=== PATIENT | male | born 1960 | race Caucasian/White ===

== ENCOUNTER 2017-01-19 07:48 | Day surgery (SDC) | payer MEDICAID ==
[~2017-01-19 07:48] MED LIST: BUPIVACAINE 0.5% 30 ML SDV ONE; ceFAZolin 2 GM/DEXTROSE 100 ML IV ONE
[2017-01-19] MEDS ORDERED: LR 1,000 ML IV ONE (08:30)
[2017-01-19] MEDS ORDERED: CEFAZOLIN 2 GM/DEXTROSE/100 ML BAG IV ONE (08:30)
[2017-01-19] MEDS ORDERED: MIDAZOLAM 2 MG/2 ML VIAL ONE (09:06)
[2017-01-19] MEDS ORDERED: ALBUTEROL 3 ML DEYVIAL ONE (09:13)
[2017-01-19] MEDS ORDERED: fentaNYL 100 MCG/2 ML INJ ONE ×2 (09:30→11:47)
[2017-01-19] MEDS ORDERED: PROPOFOL 200 MG/20 ML VIAL ONE (09:30)
[2017-01-19] MEDS ORDERED: DEXAMETHASONE 4 MG/ML VIAL ONE (09:42)
[2017-01-19] MEDS ORDERED: ONDANSETRON 4 MG/2 ML VIAL ONE (09:42)
[2017-01-19] MEDS ORDERED: ROCURONIUM 50 MG/5 ML VIAL ONE (09:43)
[2017-01-19] MEDS ORDERED: LIDOCAINE 2% 5 ML SDV ONE (09:47)
[2017-01-19] MEDS ORDERED: HYDROmorphONE/DILAUDID 2 MG/ML INJ ONE (10:00)
[2017-01-19] MEDS ORDERED: ALBUTEROL 3 ML DEYVIAL IH ONE (10:00)
[2017-01-19] MEDS ORDERED: ESMOLOL HCL 100 MG/10 ML VIAL IV ONE (10:16)
[2017-01-19] MEDS ORDERED: KETOROLAC 30 MG/1 ML SDV ONE (10:37)
--- NOTE | 2017-01-22 11:59 | GOP ---
[f rep st] OPERATIVE REPORT DATE OF OPERATION: 01/19/2017 SURGEON: Jonathan San MD SPRAY PILOT: HAROON Padilla ANESTHESIOLOGIST: Dr. Smith. PREOPERATIVE DIAGNOSIS: Left inguinal hernia. POSTOPERATIVE DIAGNOSIS: Left inguinal hernia. PROCEDURE PERFORMED: Laparoscopic left inguinal hernia repair, and exploration of the right side. FINDINGS: Patient was found to have a moderate indirect left inguinal hernia. No evidence of herni ation on the right. DESCRIPTION OF PROCEDURE: The patient was taken to the operating room, where he received satisfacto ry general endotracheal anesthesia. He was placed in the supine position, prepped and draped in usu al sterile fashion. A short infraumbilical incision was made. Dissection was carried down to the r ectus sheath, which was incised. A subfascial tunnel was developed in the preperitoneal space. It was dissected free with a balloon dissector, which was replaced with a CO2 insufflation trocar. Two other trocars were placed in the midline under direct vision. Cresencio ligament was exposed bilatera lly. The cords were mobilized bilaterally. Peritoneum was dissected off the cord structures. On t he right side, there was no evidence of an indirect sac, or any direct defect on the left. A modera te-to-large indirect sac was dissected free from the cord structures and reduced. Covidien polyeste r mesh patch was introduced. A split patch was used to pass the limb around the cord structures. I t was then anchored in place to Cresencio ligament, lacunar ligament, the anterior abdominal wall, and the lateral abdominal wall using the AbsorbaTack. Hemostasis was assured. Trocars were removed und er direct vision, releasing the pneumopreperitoneum, and incisions were closed with 0 Vicryl for the fascia, 4-0 Monocryl subcuticular stitch for the skin. All layers were infiltrated with % Marcaine. Blood loss was negligible. He was taken to recovery room in good condition. /[id number]/MODL
== END 2017-01-19 14:12 | disposition home or self-care (01) ==
LOC: FSGY 07:48
PROVIDERS: ATTEND Surgery
PROC: 0YU64JZ Supplement Left Inguinal Region with Synthetic Substitute, Percutaneous Endoscopic Approach (ICD-10-PCS; principal; 2017-01-19 09:30)
DX: K40.90 Unilateral inguinal hernia, without obstruction or gangrene, not specified as recurrent (principal); J45.909 Unspecified asthma, uncomplicated; G47.33 Obstructive sleep apnea (adult) (pediatric); Z72.0 Tobacco use
CPT/HCPCS: 49650; C1727; C1781; J0690; J1100; J1170; J1885; J2250; J2405; J2704; J3010

== ENCOUNTER → 2017-03-08 | Outpatient (CLI) | payer MEDICAID | LOC: CIMAGING 12:43 | PROVIDERS: ATTEND Internal Medicine Pulmonary Disease | DX: Z13.83 Encounter for screening for respiratory disorder NEC (principal) | CPT/HCPCS: 71020-PO ==

== ENCOUNTER → 2017-03-19 | Outpatient (CLI) | payer MEDICAID | LOC: CIMAGING 11:56 | PROVIDERS: ATTEND Internal Medicine Pulmonary Disease | DX: J44.9 Chronic obstructive pulmonary disease, unspecified (principal); R91.1 Solitary pulmonary nodule; Z87.891 Personal history of nicotine dependence | CPT/HCPCS: 71250-PO ==

== ENCOUNTER 2017-04-14 19:54 | Emergency (ER) | payer MEDICAID ==
[2017-04-14] MEDS ORDERED: FLUORESCEIN SODIUM 1 MG STRIP OP ONE (21:09)
[2017-04-14] MEDS ORDERED: PROPARACAINE 0.5% 15 ML OPHT DROP ONE (21:09)
[2017-04-14] MEDS ORDERED: OFLOXACIN 0.3% SOLN PREPACK OPHT.BTL TAKEHOME ONE (21:17)
--- NOTE | 2017-04-14 21:17 | EDPHY ---
H & P Stated Complaint: L eye injury x10 days ago, rubber band to face, continued pain decr vision Time Seen by Provider: 04/14/17 20:21 HPI/ROS: CHIEF COMPLAINT: Left eye injury HISTORY OF PRESENT ILLNESS: The patient is a 56-year-old man who comes to the emergency department complaining of a pain in his left eye. He states that last week he was working out with a stretchy band when it snapped and hit him in the left eye. He has not been seen until now has continued pain. No discharge. No erythema. REVIEW OF SYSTEMS: Constitutional: denies: chills, fever, recent illness, recent injury EENTM: See HPI Respiratory: denies: cough, shortness of breath Cardiac: denies: chest pain, irregular heart rate, lightheadedness, palpitations Gastrointestinal/Abdominal: denies: abdominal pain, diarrhea, nausea, vomiting, blood streaked stools Genitourinary: denies: dysuria, frequency, hematuria, pain Musculoskeletal: denies: joint pain, muscle pain Skin: denies: lesions, rash, jaundice, bruising Neurological: denies: headache, numbness, paresthesia, tingling, dizziness, weakness Hematologic/Lymphatic: denies: blood clots, easy bleeding, easy bruising Immunologic/allergic: denies: HIV/AIDS, transplant EXAM: GENERAL: Well-appearing, well-nourished and in no acute distress. HEAD: Atraumatic, normocephalic. EYES: Corneal abrasion left eye. Kannan-Pen measurements 15 on average. Retina appears normal. ENT: TMs normal, nares patent, oropharynx clear without exudates. Moist mucous membranes. NECK: Normal range of motion, supple without lymphadenopathy or JVD. LUNGS: Breath sounds clear to auscultation bilaterally and equal. No wheezes rales or rhonchi. HEART: Regular rate and rhythm without murmurs, rubs or gallops. ABDOMEN: Soft, nontender, normoactive bowel sounds. No guarding, no rebound. No masses appreciated. BACK: No CVA tenderness, no spinal tenderness, step-offs or deformities EXTREMITIES: Normal range of motion, no pitting or edema. No clubbing or cyanosis. NEUROLOGICAL: Cranial nerves II through XII grossly intact. Normal speech, normal gait. 5/5 strength, normal movement in all extremities, normal sensation PSYCH: Normal mood, normal affect. SKIN: Warm, dry, normal turgor, no visible rashes or lesions. Source: Patient - Personal History Current Tetanus/Diphtheria Vaccine: No - Medical/Surgical History Hx Asthma: No Hx Chronic Respiratory Disease: No Hx Diabetes: No Hx Cardiac Disease: No Hx Renal Disease: No Hx Cirrhosis: No Hx Alcoholism: No Hx HIV/AIDS: No Hx Splenectomy or Spleen Trauma: No Other PMH: knee surgery/hernia - Family History Significant Family History: No pertinent family hx - Social History Smoking Status: Former smoker Alcohol Use: Sober Drug Use: None Constitutional: Initial Vital Signs Temperature (C) 36.7 C 04/14/17 20:03 Heart Rate 100 04/14/17 20:03 Respiratory Rate 15 04/14/17 20:03 Blood Pressure 150/88 H 04/14/17 20:03 O2 Sat (%) 95 04/14/17 20:03 O2 Delivery Mode Room Air Allergies/Adverse Reactions: doxycycline [Doxycycline] Allergy (Intermediate, Verified 01/19/17 09:01) minocycline [Minocycline] Allergy (Intermediate, Verified 01/19/17 09:01) Home Medications: Medication Instructions Recorded Herbals/Supplements -Info Only 01/17/17 Inhaler, Assist Devices 01/17/17 Medical Decision Making ED Course/Re-evaluation: The patient has a corneal abrasion. I will treat him with antibiotics and follow up with Ophthalmology. No other serious injury appreciated. No sign of infection. He is happy with this plan and declines further workup or testing. Differential Diagnosis: Partial list of the Differential diagnosis considered include but were not limited to; corneal abrasion, glaucoma, traumatic iritis and although unlikely based on the history and physical exam, I also considered retinal detachment, amaurosis fugax, migraine. I discussed these differential diagnoses and the plan with the patient as well as the usual and expected course. The patient understands that the diagnosis is provisional and that in medicine we are not always correct and that further workup is often warranted. Usual and customary warnings were given. All of the patient's questions were answered. The patient was instructed to return to the emergency department should the symptoms at all worsen or return, otherwise to followup with the physician as we discussed. Departure - Departure Disposition: Home, Routine, Self-Care Clinical Impression: Corneal abrasion Qualifiers: Encounter type: initial encounter Laterality: left Qualified Code(s): S05.02XA - Injury of conjunctiva and corneal abrasion without foreign body, left eye, initial encounter Condition: Good Instructions: Corneal Abrasion (ED) Referrals: NONE *PRIMARY CARE P,. [Primary Care Provider] - As per Instructions Mayur Morrell MD [Medical Doctor] - As per Instructions
[2017-04-14 21:44] VITALS: BP 138/88; PULSE 74; RESP 18; TEMP 98.2; O2SAT 94
== END 2017-04-14 21:45 | disposition home or self-care (01) ==
DX: S05.02XA Injury of conjunctiva and corneal abrasion without foreign body, left eye, initial encounter (principal); Z87.891 Personal history of nicotine dependence; W22.8XXA Striking against or struck by other objects, initial encounter